=== PATIENT | female | born 1990 | race American Indian/Alaskan Native ===

== ENCOUNTER 2017-07-01 10:38 | Emergency (ER) | payer OTHER ==
--- NOTE | 2017-07-01 10:39 | EDPD ---
Arrival/HPI <Lee Hunter - Last Filed: 07/01/17 11:13> - General Historian: Patient <Brooks Castañeda - Last Filed: 07/01/17 14:14> - General Time Seen by Provider: 07/01/17 10:39 - History of Present Illness Narrative History of Present Illness (Text): 07/01/17 10:39 26 year old female, pmh including asthma, nkda, complaining of pelvic pain with bloating sensation started yesterday. Aching pain, bloated sensation, associated with the back pain, no urinary symptoms, no nausea or vomiting, no diarrhea, no night sweat, no rash, no numbness or tingling, no palpitation, no other medical or psychological complaints. (Brooks Castañeda) Past Medical History - Provider Review Nursing Documentation Reviewed: Yes - Infectious Disease Hx of Infectious Diseases: None - Psychiatric History Hx Physical Abuse: No Hx Emotional Abuse: No Hx Depression: No - Reproductive LMP Date: 01/25/16 Currently : No Currently Lactating: No - Suicidal Assessment Feels Threatened at Home: No <Brooks Castañeda - Last Filed: 07/01/17 14:14> Family/Social History - Physician Review Nursing Documentation Reviewed: Yes Family/Social History: Unknown Family HX Smoking Status: Never Smoked Hx Alcohol Use: No Hx Substance Use: No Hx Substance Use Treatment: No <Brooks Castañeda - Last Filed: 07/01/17 14:14> Allergies/Home Meds <Lee Hunter - Last Filed: 07/01/17 11:13> <Brooks Castañeda - Last Filed: 07/01/17 14:14> Allergies/Adverse Reactions: Allergies No Known Allergies Allergy (Verified 02/16/16 18:28) Home Medications: Home Meds Medication Instructions Recorded Confirmed Escitalopram [Lexapro] 10 mg PO HS 07/01/17 07/01/17 Pediatric Review of Systems - Review of Systems Constitutional: absent: Fatigue, Fevers Eyes: absent: Vision Changes ENT: absent: Hearing Changes Respiratory: absent: SOB, Cough Cardiovascular: absent: Chest Pain Gastrointestinal: Abdominal Pain. absent: Diarrhea, Nausea, Vomitting Musculoskeletal: Back Pain. absent: Arthralgias, Neck Pain, Joint Swelling, Myalgias Skin: absent: Rash, Pruritis Neurologic: absent: Headache, Dizziness Psychiatric: absent: Anxiety, Depression <Brooks Castañeda Q - Last Filed: 07/01/17 14:14> Pediatric Physical Exam Vital Signs Reviewed: Yes Temperature: Afebrile Blood Pressure: Normal Pulse: Regular Respiratory Rate: Normal Appearance: Positive for: Well-Appearing, Non-Toxic Pain Distress: Moderate Mental Status: Positive for: Alert and Oriented X 3 - Systems Exam Head: Present: Atraumatic, Normal [place], Normocephalic Pupils: Present: PERRL Extroacular Muscles: Present: EOMI Conjunctiva: Present: Normal Ears: Present: Normal, NORMAL TM, Normal [place] Mouth: Present: Moist Mucous Membranes Pharnyx: Present: Normal Neck: Present: Normal Range of Motion Respiratory/Chest: Present: Clear to Auscultation, Good Air Exchange. No: Respiratory Distress, Accessory Muscle Use Cardiovascular: Present: Regular Rate and Rhythm, Normal S1, S2. No: Murmurs Abdomen: Present: Normal Bowel Sounds. No: Tenderness, Distention, Peritoneal Signs, Rebound, Guarding Genitourinary/Pelvic Exam: Present: Other (Pt. deferred and declined as she is a virgin.) Back: No: Normal Inspection, CVA Tenderness, Midline Tenderness, Paraspinal Tenderness Upper Extremity: Present: Normal Inspection. No: Cyanosis, Edema Lower Extremity: Present: Normal Inspection. No: Edema Neurological: Present: GCS=15, Speech Normal, Motor Func Grossly Intact, Gait Normal, Memory Normal Skin: Present: Warm, Dry, Normal Color. No: Rashes Lymphatic: Present: OX3, NI, NC Psychiatric: Present: Alert, Normal Insight, Normal Concentration <Brooks Castañeda Q - Last Filed: 07/01/17 14:14> Vital Signs Temp Pulse Resp BP Pulse Ox 07/01/17 14:09 79 18 141/71 99 07/01/17 12:44 89 18 145/79 99 07/01/17 11:00 98 H 18 148/89 99 07/01/17 10:39 98.4 F 100 H 16 153/92 H 99 Medical Decision Making <Lee Hunter - Last Filed: 07/01/17 11:13> - Lab Interpretations I have reviewed the lab results: Yes Interpretation: Abnormal lab values (+UTI) - RAD Interpretation Steam Table Worker: Radiologist <Brooks Castañeda - Last Filed: 07/01/17 14:14> ED Course and Treatment: 07/01/17 10:59 -labs/ua -transvaginal -IVF/toradol -observe and reassess 07/01/17 14:11 -Labs are non-significant -UA show +UTI -Pt. refused transvaginal sonogram and stated that she is a virgin, only allow pelvic sonogram: visible bilateral ovaries with normal flow, there is rt. ovarian cyst 2.3x2.2cm -Pain resolved, will discharge home. -Discharge home with macrobid, motrin, stay hydrated, bed rest, follow up with your own pmd and obgyn within 2 days, return to the ER for any new or worsening signs or symptoms. (Brooks Castañeda) - Lab Interpretations Lab Results: 07/01/17 11:20 07/01/17 11:20 Lab Results 07/01/17 11:20: WBC 7.2 D, RBC 4.38, Hgb 12.1, Hct 38.2, MCV 87.2, MCH 27.6, MCHC 31.7, RDW 14.3, Plt Count 394, MPV 9.2, Gran % 61.8, Lymph % (Auto) 29.1, [place] % (Auto) 6.4 H, Eos % (Auto) 2.1, Baso % (Auto) 0.6, Gran # 4.45, Lymph # 2.1, Mckean # 0.5, Eos # 0.2, Baso # 0.04 07/01/17 11:20: Sodium 137, Potassium 4.2, Chloride 100, Carbon Dioxide 26, Anion Gap 15, BUN 10, Creatinine 0.6, Est GFR ( Amer) > 60, Est GFR (Non- Af Amer) > 60, Random Glucose 110, Calcium 9.5, Total Bilirubin 0.5, AST 28, ALT 29, Alkaline Phosphatase 81, Total Protein 7.9, Albumin 4.3, Globulin 3.6, Albumin/Globulin Ratio 1.2, Lipase 69 07/01/17 10:55: Urine Color Light yellow, Urine Appearance Clear, Urine pH 6.0, Ur Specific [place] 1.010, Urine Protein Negative, Urine Glucose (UA) Negative, Urine Ketones Negative, Urine Blood Negative, Urine Nitrate Negative, Urine Bilirubin Negative, Urine Urobilinogen 0.2, Ur Leukocyte Esterase Trace H, Urine RBC Negative, Urine WBC 0 - 2, Ur Epithelial Cells 1 - 3, Urine Bacteria Few - RAD Interpretation Radiology Orders: 07/01/17 11:31 PELVIS ULTRASOUND [US] Stat 07/01/17 11:31 PELVIS ULTRASOUND [US] Stat HISTORY: Pelvic pain. Menstrual status: Unknown LMP. COMPARISON: None available. TECHNIQUE: Transabdominal only. Real-time technique with 2D, duplex and color Doppler FINDINGS: UTERUS: Measures 3.2 x 3.8 x 8.1 cm. Normal in size and appearance. No fibroid or other mass lesion seen. ENDOMETRIUM: Measures 8.0 mm in diameter. No ultrasound findings to suggest gestational sac, fluid, debris, mass or polyp or other pathologic process within the endometrium. CERVIX: No cervical abnormality identified. RIGHT OVARY: Measures 3.4 x 2.7 x 3.5 cm. No solid mass. Normal flow. Simple cyst is visualized 2.3 x 2.2 cm LEFT OVARY: Measures 2 x 2.7 x 3.4 cm. No solid mass. Normal flow. FREE FLUID: No significant free fluid noted. OTHER FINDINGS: None. IMPRESSION: No acute findings related to/accounting for the clinical presentation. Incidental finding(s): Simple cyst right ovary. (Brooks Castañeda) - Medication Orders Current Medication Orders: Discontinued Medications Sodium Chloride (Sodium Chloride 0.9%) 1,000 mls @ 999 mls/hr IV .Q1H1M STA Stop: 07/01/17 11:55 Last Admin: 07/01/17 11:22 Dose: 999 mls/hr eMAR Start Stop Document 07/01/17 11:22 SF (Rec: 07/01/17 11:22 SF [email or web address] Intravenous Solution Start Date 07/01/17 Start Time 11:22 End Date 07/01/17 End time 12:23 Total Infusion Time 61 Ketorolac Tromethamine (Toradol) 30 mg IVP STAT STA Stop: 07/01/17 10:56 Last Admin: 07/01/17 11:23 Dose: 30 mg MAR Pain Assessment Document 07/01/17 11:23 SF (Rec: 07/01/17 11:24 SF [email or web address] Pain Reassessment Is this a pain reassessment? Yes Sleep Is patient sleeping during reassessment? No Presence of Pain Presence of Pain Yes IVP Administration Document 07/01/17 11:23 SF (Rec: 07/01/17 11:24 SF [email or web address] Charges for Administration # of IVP Administrations 1 - PA / [employer]TH[employer] SALESPERSON / Resident Statement CELINA has reviewed & agrees with the documentation as recorded. CELINA has examined the patient and agrees with the treatment plan. <Lee Hunter - Last Filed: 07/01/17 11:13> - PA / [employer]TH[employer] SALESPERSON / Resident Statement CELINA has reviewed & agrees with the documentation as recorded. <Brooks Castañeda - Last Filed: 07/01/17 14:14> Disposition/Present on Arrival <Lee Hunter - Last Filed: 07/01/17 11:13> - Present on Arrival Any Indicators Present on Arrival: No History of DVT/PE: No History of Uncontrolled Diabetes: No Urinary Catheter: No History of Decub. Ulcer: No History Surgical Site Infection Following: None - Disposition Have Diagnosis and Disposition been Completed?: Yes Disposition Time: 14:12 Patient Plan: Discharge <Brooks Castañeda - Last Filed: 07/01/17 14:14> - Disposition Diagnosis: Ovarian cyst, UTI (urinary tract infection) Disposition: HOME/ ROUTINE Condition: IMPROVED Additional Instructions: -Discharge home with macrobid, motrin, stay hydrated, bed rest, follow up with your own pmd and obgyn within 2 days, return to the ER for any new or worsening signs or symptoms. Prescriptions: Ibuprofen [Motrin Tab] 800 mg PO TID PRN #21 tab PRN Reason: Other Nitrofurantoin Macrocrystals [Macrobid] 100 mg PO BID #14 cap Referrals: Camden Schwab MD [Primary Care Provider] - Follow up with primary Patrick Reyes MD [Staff Provider] - Follow up with primary Forms: WORK NOTE
[2017-07-01 10:40] VITALS: BMI 58.1
[2017-07-01 10:46] VITALS: TEMP 98.4; O2SAT 99
[2017-07-01] MEDS ORDERED: Sodium Chloride 0.9% 1,000 ML IV STA (10:55)
[2017-07-01 11:29] VITALS: RESP 18
[2017-07-01 11:38] LABS: BASO # 0.04 K/mm3 (0.0-2.0); BASO % 0.6 % (0.0-3.0); EOS # 0.2 (0.0-0.7); EOS % 2.1 % (1.5-5.0); GRAN # 4.45 (1.4-6.5); GRAN % 61.8 % (50.0-68.0); HEMATOCRIT 38.2 % (36.0-48.0); LYMPH # 2.1 (1.2-3.4); LYMPH % 29.1 % (22.0-35.0); MEAN CELL VOLUME 87.2 fl (80.0-105.0); MEAN CORPUSCULAR HEMOGLOBIN 27.6 pg (25.0-35.0); MEAN CORPUSCULAR HGB CONC 31.7 g/dl (31.0-37.0); MEAN PLATELET VOLUME 9.2 fl (7.0-11.0); MONO # 0.5 (0.1-0.6); MONO % 6.4 % (1.0-6.0); RED CELL DISTRIBUTION WIDTH 14.3 % (11.5-14.5); WHITE BLOOD COUNT 7.2 10^3/ul (4.5-11.0)
[2017-07-01 11:46] LABS: ALB/GLOB RATIO 1.2 (1.1-1.8); ALKALINE PHOSPHATASE 81 U/L (38-126); ALT/SGPT 29 U/L (7-56); AST/SGOT 28 U/L (14-36); BILIRUBIN,TOTAL 0.5 mg/dL (0.2-1.3); BLOOD UREA NITROGEN 10 mg/dL (7-21); CALCIUM 9.5 mg/dL (8.4-10.5); CARBON DIOXIDE 26 mmol/L (21-33); CHLORIDE 100 mmol/L (98-107); GFR AFRICAN-AMERICAN > 60; GLUCOSE,RANDOM 110 mg/dL (70-110); LIPASE 69 U/L (23-300); POTASSIUM 4.2 mmol/L (3.6-5.0); SODIUM 137 mmol/L (132-148); TOTAL PROTEIN 7.9 g/dL (5.8-8.3)
[2017-07-01 11:49] LABS: URINE BILIRUBIN NEGATIVE (NEGATIVE); URINE BLOOD NEGATIVE (NEGATIVE); URINE GLUCOSE (UA) NEGATIVE (NEGATIVE); URINE KETONE NEGATIVE (NEGATIVE); URINE LEUKOCYTE ESTERASE TRACE Leu/uL (NEGATIVE); URINE PROTEIN NEGATIVE mg/dL (<30 mg/dL); URINE UROBILINOGEN 0.2 E.U./dL (<1 E.U./dL)
[2017-07-01 11:54] LABS: URINE APPEARANCE CLEAR (CLEAR); URINE COLOR LIGHT YELLOW (YELLOW)
[2017-07-01 12:10] LABS: URINE BACTERIA FEW (NEG); URINE RBC NEGATIVE /hpf (0-2); URINE WBC 0 - 2 /hpf (0-6)
--- NOTE | 2017-07-01 13:41 | US ---
HISTORY: Pelvic pain. Menstrual status: Unknown LMP. COMPARISON: None available. TECHNIQUE: Transabdominal only. Real-time technique with 2D, duplex and color Doppler FINDINGS: UTERUS: Measures 3.2 x 3.8 x 8.1 cm. Normal in size and appearance. No fibroid or other mass lesion seen. ENDOMETRIUM: Measures 8.0 mm in diameter. No ultrasound findings to suggest gestational sac, fluid, debris, mass or polyp or other pathologic process within the endometrium. CERVIX: No cervical abnormality identified. RIGHT OVARY: Measures 3.4 x 2.7 x 3.5 cm. No solid mass. Normal flow. Simple cyst is visualized 2.3 x 2.2 cm LEFT OVARY: Measures 2 x 2.7 x 3.4 cm. No solid mass. Normal flow. FREE FLUID: No significant free fluid noted. OTHER FINDINGS: None. IMPRESSION: No acute findings related to/accounting for the clinical presentation. Incidental finding(s): Simple cyst right ovary.
[2017-07-01 14:10] VITALS: BP 141/71; PULSE 79
== END 2017-07-01 14:42 | disposition home or self-care (01) ==
LOC: ED 10:38
DX: N39.0 Urinary tract infection, site not specified (principal); N83.201 Unspecified ovarian cyst, right side
CPT/HCPCS: 76856; 80053; 81001; 83690; 85025; 87086; 96361; 96374; 99284; J1885; J7040

== ENCOUNTER 2018-07-27 11:44 | Emergency (ER) | payer MEDICAID, OTHER ==
[2018-07-27 11:56] VITALS: BMI 54.8
[2018-07-27 11:57] VITALS: O2SAT 99
--- NOTE | 2018-07-27 12:02 | ED PDOC ---
Arrival/HPI - General Chief Complaint: Abnormal Skin Integrity Time Seen by Provider: 07/27/18 11:56 Historian: Patient - History of Present Illness Narrative History of Present Illness (Text): 07/27/18 11:59 27yo morbidly, morbidly obese female with pmhx of anxiety bib the EMS for right lower leg laceration s/p trauma this morning. Patient states she tipped over her shoes this morning and fell, sustaining the laceration on her right lower anterior leg/[place]orge area. Patient reports pain around area area of the laceration. Denies hitting her head anywhere. Denies LOC, headache, visual changes, paresthesia, any other complaint. Past Medical History - Provider Review Nursing Documentation Reviewed: Yes - Infectious Disease Hx of Infectious Diseases: None - Cardiac Hx Cardiac Disorders: No - Pulmonary Hx Respiratory Disorders: No - Neurological Hx Neurological Disorder: No - HEENT Hx HEENT Disorder: No - Renal Hx Renal Disorder: No - Endocrine/Metabolic Hx Endocrine Disorders: No - Hematological/Oncological Hx Blood Disorders: Yes Hx Anemia: Yes - Integumentary Hx Dermatological Disorder: No - Musculoskeletal/Rheumatological Hx Musculoskeletal Disorders: No Hx Falls: No - Gastrointestinal Hx Gastrointestinal Disorders: No - Genitourinary/Gynecological Hx Genitourinary Disorders: No - Psychiatric Hx Depression: No Hx Emotional Abuse: No Hx Physical Abuse: No Hx Substance Use: No - Suicidal Assessment Feels Threatened In Home Enviroment: No Family/Social History - Physician Review Nursing Documentation Reviewed: Yes Family/Social History: Unknown Family HX Smoking Status: Never Smoked Hx Alcohol Use: No Hx Substance Use: No Hx Substance Use Treatment: No Allergies/Home Meds Allergies/Adverse Reactions: Allergies No Known Allergies Allergy (Verified 02/16/16 18:28) Home Medications: Home Meds Medication Instructions Recorded Confirmed Escitalopram [Lexapro] 10 mg PO HS 07/01/17 07/01/17 Review of Systems - Physician Review All systems were reviewed & negative as marked: Yes - Review of Systems Constitutional: Normal Eyes: Normal ENT: Normal Respiratory: Normal Cardiovascular: Normal Gastrointestinal: Normal Genitourinary Female: Normal Musculoskeletal: Arthralgias (Right lower leg pain) Skin: Laceration (Right lower leg) Neurological: Normal Endocrine: Normal Hemo/Lymphatic: Normal Psychiatric: Normal Physical Exam Vital Signs Reviewed: Yes Vital Signs Temp Pulse Resp BP Pulse Ox 07/27/18 11:44 98 F 109 H 19 133/78 99 Temperature: Afebrile Blood Pressure: Normal Pulse: Regular Respiratory Rate: Normal Appearance: Positive for: Well-Appearing, Non-Toxic, Comfortable Pain Distress: None Mental Status: Positive for: Alert and Oriented X 3 - Systems Exam Head: Present: Atraumatic, Normocephalic Pupils: Present: PERRL Extroacular Muscles: Present: EOMI Conjunctiva: Present: Normal Mouth: Present: Moist Mucous Membranes Neck: Present: Normal Range of Motion Respiratory/Chest: Present: Clear to Auscultation, Good Air Exchange. No: Respiratory Distress, Accessory Muscle Use Cardiovascular: Present: Regular Rate and Rhythm, Normal S1, S2. No: Murmurs Abdomen: No: Tenderness, Distention, Peritoneal Signs Back: Present: Normal Inspection Upper Extremity: Present: Normal Inspection. No: Cyanosis, Edema Lower Extremity: Present: Normal Inspection. No: Edema Neurological: Present: GCS=15, CN II-XII Intact, Speech Normal Skin: Present: Warm, Dry, Normal Color, Laceration (7.5ml linear /wide and deep cut). No: Rashes Psychiatric: Present: Alert, Oriented x 3, Normal Insight, Normal Concentration Medical Decision Making - RAD Interpretation Radiology Orders: 07/27/18 11:57 TIBIA FIBULA RIGHT [RAD] Stat - Medication Orders Current Medication Orders: Discontinued Medications Acetaminophen (Tylenol 325mg Tab) 650 mg PO STAT STA Stop: 07/27/18 11:59 Procedure: Wound Repair - Consent Obtained Consent obtained: Verbal - Performed by Performed by: Mid-level Provider - Indications Indication(s):: Laceration - Location Location:: Right, Leg Shape:: Linear Dimensions Length cm: 7.5 Dimensions width cm: 1.5 Depth:: Subcutaneous fascia - Anesthetic Technique Anesthetic Technique: Local Local/Regional Anesthetic:: Lidocaine 1% w/epi (20) - Debris Debris:: None - Irrigated Irrigated with ml of normal saline: 100 - Complexity Complexity:: Intermediate (2 layer) - Muscle repiar layer closed with Muscle repair layer closed with:: # (25), Size (3 and 4), Type (absorbable and proline), Technique (mattress and interrupted), Wound well approximated, Abx ointment applied, Dressing applied, Tetanus ordered - Patient tolerated procedure Patient Tolerated Procedure:: Well Disposition/Present on Arrival - Present on Arrival Any Indicators Present on Arrival: No History of DVT/PE: No History of Uncontrolled Diabetes: No Urinary Catheter: No History of Decub. Ulcer: No History Surgical Site Infection Following: None - Disposition Have Diagnosis and Disposition been Completed?: Yes Diagnosis: Laceration Disposition: HOME/ ROUTINE Disposition Time: 15:30 Patient Plan: Discharge Condition: STABLE Discharge Instructions (ExitCare): Laceration Repair Additional Instructions: Keep wound clean and dry Follow up with your Doctor in 14days for suture removal Return to ED for fever, discharge from wound, redness Prescriptions: Cephalexin [Keflex] 500 mg PO TID #21 capsule Referrals: Mikayla Young MD [Medical Doctor] - Follow up with primary Forms: [facility] (Ukrainian)
[2018-07-27] MEDS ORDERED: TDAP Vaccine 0.5 mL Syr IM ONE (12:57)
[2018-07-27 13:27] VITALS: RESP 18
--- NOTE | 2018-07-27 13:35 | RAD ---
Date of service: 07/27/2018 PROCEDURE: Radiographs of the right tibia and fibula. HISTORY: right leg pain s/p trauma COMPARISON: None available TECHNIQUE: Frontal and lateral views obtained. FINDINGS: BONES: Bone alignment and mineralization are normal. There is no acute displaced fracture or bone destruction. JOINT SPACES: Unremarkable. OTHER FINDINGS: There is subcutaneous edema and soft tissue emphysema in the lateral leg. No radiopaque foreign body. IMPRESSION: No acute fracture or dislocation.
[2018-07-27] MEDS ORDERED: Lidocaine 1%/Epinephrine 1:100000 30 ml vial IJ ONE ×2 (14:05→14:30)
[2018-07-27 16:17] VITALS: BP 125/72; PULSE 72; TEMP 98.3
== END 2018-07-27 16:12 | disposition home or self-care (01) ==
LOC: ED 11:44
DX: S81.811A Laceration without foreign body, right lower leg, initial encounter (principal); W01.0XXA Fall on same level from slipping, tripping and stumbling without subsequent striking against object, initial encounter; Y92.9 Unspecified place or not applicable; Z23 Encounter for immunization